=== PATIENT | female | born 1940 | race Two or more races ===

== ENCOUNTER 2024-03-26 06:09 | Inpatient (IN) | payer OTHER ==
[~2024-03-26] VITALS: Ht 157.5 cm; Wt 63.5 kg
[2024-03-26] MEDS ORDERED: ENALAPRIL-HCTZ1 EACH PO (06:39)
[2024-03-26] MEDS ORDERED: ACETAMINOPHEN 500 MG GEL..CAP PO STA (07:41)
[2024-03-26 08:38] LABS: HEMATOCRIT 38.3 % (36.0-45.00); MEAN CELL VOLUME 91.5 fL (80.00-100.00); MEAN CORPUSCULAR HGB CONC 33.9 g/dl (32.0-36.0); PLATELET COUNT 217 K/uL (150-450); RED BLOOD COUNT 4.19 M/uL (4.00-6.00); RED CELL DISTRIBUTION WIDTH 13.2 % (11.5-14.5)
[2024-03-26] MEDS ORDERED: BUTALB/ACETAMINOPHEN/CAFFEINE 1 TAB TABLET PO ONE (09:45)
[2024-03-26 09:55] LABS: URINE APPEARANCE Clear; URINE BILIRRUBIN Negative (NEGATIVE); URINE BLOOD Negative; URINE COLOR Yellow; URINE GLUCOSE Negative (NEGATIVE); URINE KETONE Negative (NEGATIVE); URINE LEUKOCYTE Negative; URINE NITRATE Negative; URINE PROTEIN Negative (NEGATIVE); URINE UROBILINOGEN 0.2 E.U./dl
[2024-03-26 10:00] LABS: URINE BACTERIA 7.5 uL (0.0-1933); URINE EPITHELIAL CELLS 1.6 uL (0.0-38.8)
[2024-03-26 10:01] LABS: URINE CAST 0.15 uL (0.0-1.40); URINE WBC 1.6 uL (0.0-23.2)
[2024-03-26 10:51] LABS: INR 0.96; PARTIAL THROMBOPLASTIN TIME 28.4 SECONDS (22.0-34.0); PROTHROMBIN TIME 10.5 SECONDS (9.0-11.5)
[2024-03-26 10:53] LABS: ALBUMIN 3.7 gm/dL (3.4-5.0); BILIRUBIN TOTAL 0.39 mg/dL (0.3-1.2); CALCIUM 9.2 mg/dL (8.5-10.1); CREATININE SERUM 0.98 mg/dL (0.55-1.02); GFR 54.33; GLOBULINA 3.2 G/DL (2.4-3.5); POTASSIUM 4.08 mEq/L (3.5-5.1); TOTAL PROTEIN 6.9 gm/dL (6.4-8.2)
[2024-03-26] MEDS ORDERED: BUTALB/ACETAMINOPHEN/CAFFEINE 1 TAB TABLET PO PRN (20:00)
[2024-03-26 20:53] LABS: D DIMER 0.73 MG/L
[2024-03-26] MEDS ORDERED: 0.9 % SODIUM CHLORIDE 1,000 ML IV SCH (21:15)
[2024-03-26] MEDS ORDERED: CLOPIDOGREL BISULFATE 75 MG TABLET PO SCH (21:31)
[2024-03-26] MEDS ORDERED: ENOXAPARIN SODIUM 40 MG/0.4 ML SYRINGE SUBCUTANEO SCH (21:45)
[2024-03-27] VITALS (7 sets, daily range): BP systolic 111–150; BP diastolic 69–82; O2SAT 89–98
[2024-03-27 01:50] LABS: CKMB 1.1 NG/ML (0.5-3.6)
[2024-03-27 08:38] LABS: HEMATOCRIT 32.7 % (36.0-45.00); HEMOGLOBIN 10.8 g/dL (12.0-15.00); MEAN CELL VOLUME 91.7 fL (80.00-100.00); MEAN CORPUSCULAR HEMOGLOBIN 30.2 pg (27.00-32.0); PLATELET COUNT 368 K/uL (150-450); RED BLOOD COUNT 3.57 M/uL (4.00-6.00); RED CELL DISTRIBUTION WIDTH 13.9 % (11.5-14.5)
[2024-03-27 08:59] LABS: ERYTHROCYTE SEDIMENTATION RATE 86 mm/hr
[2024-03-27] MEDS ORDERED: HYDROCHLOROTHIAZIDE 25 MG TABLET PO SCH (09:00)
[2024-03-27] MEDS ORDERED: ATORVASTATIN CALCIUM 10 MG TABLET PO SCH (09:00)
[2024-03-27] MEDS ORDERED: ENALAPRIL MALEATE 10 MG TABLET PO SCH (09:00)
[2024-03-27] MEDS ORDERED: THIAMINE HCL 100 MG/ML 2 ML VIAL IV SCH (09:00)
[2024-03-27 09:13] LABS: INR 1.05; PARTIAL THROMBOPLASTIN TIME 23.6 SECONDS (22.0-34.0); PROTHROMBIN TIME 11.4 SECONDS (9.0-11.5)
[2024-03-27 09:41] LABS: ALBUMIN 2.5 gm/dL (3.4-5.0); BILIRUBIN TOTAL 0.47 mg/dL (0.3-1.2); BILIRUBIN,CONJUGATED 0.19 mg/dL (0.0-0.2); BILIRUBIN,UNCONJUGATED 0.28 mg/dL (0.0-0.6); CALCIUM 9.7 mg/dL (8.5-10.1); CHOL HDL RATIO 1.3 (0-5.0); CREATININE SERUM 1.81 mg/dL (0.55-1.02); GFR 26.77; MAGNESIUM 2.5 mg/dL (1.8-2.4); POTASSIUM 4.37 mEq/L (3.5-5.1)
[2024-03-27 09:47] LABS: C-REACTIVE PROTEIN 3.79 MG/DL (0.00-0.29); T4 FREE 1.84 NG/ML (0.76-1.46); TSH 0.13 uIU/mL (0.358-3.74)
[2024-03-27 10:52] LABS: URINE APPEARANCE Clear; URINE BILIRRUBIN Negative (NEGATIVE); URINE BLOOD Negative; URINE COLOR Yellow; URINE GLUCOSE Negative (NEGATIVE); URINE KETONE Negative (NEGATIVE); URINE LEUKOCYTE Small; URINE NITRATE Negative; URINE PROTEIN Negative (NEGATIVE); URINE UROBILINOGEN 0.2 E.U./dl
[2024-03-27 10:57] LABS: URINE BACTERIA 69.2 uL (0.0-1933); URINE RBC 4.1 uL (0.0-20.8); URINE WBC 21.9 uL (0.0-23.2)
[2024-03-27 11:05] LABS: URINE CAST 0.91 uL (0.0-1.40)
[2024-03-28 00:40] VITALS: O2SAT 96
[2024-03-28 02:46] VITALS: BP 99/64; O2SAT 97
[2024-03-28 03:51] VITALS: O2SAT 94
[2024-03-28] MEDS ORDERED: ENOXAPARIN SODIUM 30 MG/0.3 ML SYRINGE SUBCUTANEO SCH (09:00)
[2024-03-28 09:30] VITALS: BP 116/74; O2SAT 97
[2024-03-28 09:50] VITALS: O2SAT 90
[2024-03-28] MEDS ORDERED: ATORVASTATIN CA10 MG PO (14:13)
[2024-03-28] MEDS ORDERED: CLOPIDOGREL BIS75 MG PO (14:13)
[2024-03-28] MEDS ORDERED: HYDROCHLOROTHIA25 MG PO (14:14)
[2024-03-28] MEDS ORDERED: VASOTEC10 MG PO (14:14)
[2024-03-28 14:24] VITALS: O2SAT 94
== END 2024-03-28 14:39 | disposition home or self-care (01) | DRG 69 ==
LOC: ER 06:11 → MEDJ 22:47
PROVIDERS: General Practice; ADMIT Internal Medicine; ATTEND Internal Medicine
PROC: BW28ZZZ Computerized Tomography (CT Scan) of Head (ICD-10-PCS; principal; 2024-03-26)
PROC: B030ZZZ Magnetic Resonance Imaging (MRI) of Brain (ICD-10-PCS; 2024-03-26)
PROC: B246ZZZ Ultrasonography of Right and Left Heart (ICD-10-PCS; 2024-03-26)
PROC: B345ZZZ Ultrasonography of Bilateral Common Carotid Arteries (ICD-10-PCS; 2024-03-26)
PROC: 4A12X4Z Monitoring of Cardiac Electrical Activity, External Approach (ICD-10-PCS; 2024-03-27)
DX: G45.9 Transient cerebral ischemic attack, unspecified (principal); I10 Essential (primary) hypertension; R47.81 Slurred speech
CPT/HCPCS: 70551

== ENCOUNTER 2024-12-14 10:59 | Outpatient (CLI) | payer OTHER ==
[~2024-12-14 10:59] MED LIST: ATORVASTATIN CA10 MG PO; CLOPIDOGREL BIS75 MG PO; ENALAPRIL-HCTZ1 EACH PO; HYDROCHLOROTHIA25 MG PO; VASOTEC10 MG PO
== END 2024-12-14 11:00 | disposition home or self-care (01) ==
LOC: NUCLEAR 10:59
PROVIDERS: ATTEND Internal Medicine
DX: M85.09 Fibrous dysplasia (monostotic), multiple sites (principal); M81.0 Age-related osteoporosis without current pathological fracture

== ENCOUNTER 2024-12-14 13:30 | Outpatient (CLI) | payer OTHER | END 2024-12-14 13:31 | disposition home or self-care (01) | LOC: MAMO-SONO 13:30 | PROVIDERS: ATTEND Internal Medicine | DX: M15.0 Primary generalized (osteo)arthritis (principal); N63.0 Unspecified lump in unspecified breast; Z12.31 Encounter for screening mammogram for malignant neoplasm of breast ==

== ENCOUNTER 2024-12-23 07:05 | Outpatient (CLI) | payer OTHER | END 2024-12-23 07:06 | disposition home or self-care (01) | LOC: NUCLEAR 07:05 | PROVIDERS: ATTEND Physical Medicine & Rehabilitation | DX: M13.0 Polyarthritis, unspecified (principal); M06.9 Rheumatoid arthritis, unspecified | CPT/HCPCS: 78315; A9503 ==

== ENCOUNTER 2025-01-11 10:26 | Outpatient (CLI) | payer OTHER | END 2025-01-11 10:29 | disposition home or self-care (01) | LOC: TOM 10:26 | PROVIDERS: ATTEND Internal Medicine | DX: K40.90 Unilateral inguinal hernia, without obstruction or gangrene, not specified as recurrent (principal) | CPT/HCPCS: 74177; Q9965 ==